=== PATIENT | female | born 1995 | race Caucasian/White ===

== ENCOUNTER 2017-10-15 01:54 | Emergency (ER) | payer SELFPAY | END 2017-10-15 02:17 | disposition left against medical advice (07) | LOC: M ED 01:54 | DX: R51 Headache (principal); Z53.21 Procedure and treatment not carried out due to patient leaving prior to being seen by health care provider ==

== ENCOUNTER → 2018-03-02 | Outpatient (REF) | payer BC | LOC: M LAB REF 11:54 | DX: J02.9 Acute pharyngitis, unspecified (principal) | CPT/HCPCS: 87081 ==

== ENCOUNTER 2019-04-26 19:06 | Emergency (ER) | payer OTHER ==
[~2019-04-26] VITALS: Ht 154.9 cm; Wt 83.2 kg
[~2019-04-26 19:06] MED LIST changes: -ALBU8.5H
[2019-04-26] MEDS ORDERED: ALBU8.5H (19:18)
[2019-04-26 19:51] LABS: BASO # 0.1 10^3/uL (0.0-0.2); BASO % 0.7 % (0.0-1.0); EOS # 0.2 10^3/uL (0.0-0.50); EOS % 1.5 % (0.0-3.0); HEMATOCRIT 43.4 % (36.0-47.0); HEMOGLOBIN 13.9 g/dl (12.0-15.5); LYMPH # 2.9 10^3/uL (1.5-6.5); LYMPH % 23.9 % (24.0-44.0); MEAN CORPUSCULAR HEMOGLOBIN 30.8 pg (27.0-33.0); MEAN CORPUSCULAR VOLUME 96.2 fl (80.0-96.0); MONO # 1.1 10^3/uL (0.0-0.8); MONO % 9.2 % (0.0-5.0); NEUTROPHILS # 7.9 10^3/uL (1.8-7.7); NEUTROPHILS % 64.1 % (36.0-66.0); PLATELET COUNT, AUTOMATED 273 10^3/uL (150-450); RED BLOOD COUNT 4.51 10^6/uL (4.00-5.40); WHITE BLOOD COUNT 12.2 10^3/uL (4.0-10.0)
[2019-04-26 20:37] LABS: BLOOD UREA NITROGEN 10 MG/DL (7-18); CALCIUM LEVEL 9.5 MG/DL (8.5-10.1); CARBON DIOXIDE LEVEL 29 MEQ/L (21-32); CHLORIDE LEVEL 107 MEQ/L (98-107); CREATININE FOR GFR 0.74 MG/DL (0.55-1.30); GLOMERULAR FILTRATION RATE > 60.0 (>60); GLUCOSE, FASTING 87 MG/DL (70-100); HCG, SERUM QUANTITATIVE 6677 MIU/ML; POTASSIUM SERUM 4.3 MEQ/L (3.5-5.1); SODIUM LEVEL 141 MEQ/L (136-145)
[2019-04-26] MEDS ORDERED: ACETAMINOPHEN 325 MG TAB PO ONE (21:15)
--- NOTE | 2019-04-26 21:43 | REPVR ---
EXAM: US , Transvaginal EXAM DATE/TIME: 04/26/2019 8:45 PM CLINICAL HISTORY: 24 years old, female; Lmp or gestational age (in weeks): 7; Antepartum complications; Bleeding; ; Additional info: Vaginal bleeding 7 wks preg TECHNIQUE: Imaging protocol: Real-time transvaginal obstetrical ultrasound of the maternal pelvis and a first trimester with image documentation. Transvaginal imaging was used for better evaluation of the fetus and adnexa. COMPARISON: No relevant prior studies available. FINDINGS: GESTATION: Gestation: Gestational sac within the uterus with yolk sac but no pole at this time. BIOMETRY: Estimated gestational age: Mean sac size is 9 mm suggesting an age of 5 weeks 5 days. MATERNAL: Uterus: The uterus measures 8.0 cm in its cephalocaudad dimension and 3.7 x 5.3 cm in its AP and lateral dimensions. Right adnexa: The right ovary measures 2.8 x 2.2 x 2.8 cm. Left adnexa: The left ovary measures 2.1 x 1.4 x 1.6. IMPRESSION: 1. Gestational sac within the uterus which by size suggests an age of 5 weeks 5 days. There is a yolk sac but no pole at this time. Followup in 1-2 weeks may be of benefit to evaluate for viability. 2. Otherwise negative pelvic sonogram. Electronically signed by: Carson Green On 04/26/2019 21:43:12 PM
[2019-04-26 22:19] VITALS: BP 114/73
== END 2019-04-26 22:35 | disposition home or self-care (01) ==
LOC: M ED 19:06
DX: O26.851 Spotting complicating pregnancy, first trimester (principal); W01.0XXA Fall on same level from slipping, tripping and stumbling without subsequent striking against object, initial encounter; Y92.9 Unspecified place or not applicable; Y93.9 Activity, unspecified; Y99.9 Unspecified external cause status; O99.511 Diseases of the respiratory system complicating pregnancy, first trimester; O99.89 Other specified diseases and conditions complicating pregnancy, childbirth and the puerperium; R10.2 Pelvic and perineal pain; J30.81 Allergic rhinitis due to animal (cat) (dog) hair and dander; Z3A.01 Less than 8 weeks gestation of pregnancy; Z88.8 Allergy status to other drugs, medicaments and biological substances

== ENCOUNTER → 2019-04-26 | Outpatient (CLI) | payer OTHER ==
[~2019-04-26] MED LIST: ALBU8.5H; IBUP-1022 PO
[2019-04-26 20:10] LABS: HCG, SERUM QUALITATIVE POSITIVE (NEGATIVE)
[2019-04-26 20:34] LABS: HCG, SERUM QUANTITATIVE 6534 MIU/ML
== END ==
LOC: M WUC 15:37
PROVIDERS: ATTEND Physician Assistant
DX: N91.2 Amenorrhea, unspecified (principal)

== ENCOUNTER → 2019-05-03 | Outpatient (REF) | payer OTHER ==
[~2019-05-03] MED LIST changes: +ALBU8.5H
== END ==
LOC: M SFHCPLAZ 17:17
PROVIDERS: ATTEND Dermatology
DX: D22.5 Melanocytic nevi of trunk (principal); L72.0 Epidermal cyst

== ENCOUNTER → 2019-07-10 | Outpatient (REF) | payer OTHER | LOC: M LAB REF 17:05 | PROVIDERS: ATTEND Family Medicine | DX: M54.5 Low back pain (principal) ==

== ENCOUNTER → 2019-10-04 | Outpatient (CLI) | payer OTHER ==
[2019-10-04 18:31] LABS: HEMATOCRIT 40.3 % (36.0-47.0); HEMOGLOBIN 12.3 g/dl (12.0-15.5); MEAN CORPUSCULAR HEMOGLOBIN 29.3 pg (27.0-33.0); MEAN CORPUSCULAR HGB CONC 30.5 g/dl (32.0-36.5); PLATELET COUNT, AUTOMATED 179 10^3/uL (150-450); WHITE BLOOD COUNT 13.9 10^3/uL (4.0-10.0)
== END ==
LOC: M PLALAB 14:28 → MERGE 14:28
PROVIDERS: ATTEND Advanced Practice Midwife
DX: Z34.93 Encounter for supervision of normal pregnancy, unspecified, third trimester (principal); Z3A.00 Weeks of gestation of pregnancy not specified

== ENCOUNTER → 2019-10-17 | Outpatient (CLI) | payer OTHER | LOC: M LAB 06:55 → MERGE 06:55 | PROVIDERS: ATTEND Advanced Practice Midwife | DX: R73.01 Impaired fasting glucose (principal) ==

== ENCOUNTER → 2019-11-29 | Outpatient (REF) | payer OTHER ==
[~2019-11-29] MED LIST changes: +ACET-683 PO; +MULTTAB20 PO; +TUMS500C PO; +ZYRTTAB8 PO
== END ==
LOC: M SFHCWAGY 10:01
PROVIDERS: ATTEND Specialist
DX: Z34.83 Encounter for supervision of other normal pregnancy, third trimester (principal)

== ENCOUNTER 2019-12-05 19:47 | Outpatient (CLI) | payer OTHER ==
[~2019-12-05] VITALS: Ht 154.9 cm; Wt 94.0 kg
[2019-12-05 20:08] VITALS: BP 132/77
== END 2019-12-05 22:05 | disposition home or self-care (01) ==
LOC: M LDO 19:47
PROVIDERS: ATTEND Obstetrics & Gynecology
DX: O36.8130 Decreased fetal movements, third trimester, not applicable or unspecified (principal); Z3A.37 37 weeks gestation of pregnancy; Z79.51 Long term (current) use of inhaled steroids
CPT/HCPCS: 59025; 80053; 82239; G0378; G0463

== ENCOUNTER → 2019-12-05 | Outpatient (REF) | payer OTHER ==
[~2019-12-05] MED LIST changes: -ACET-683 PO; -MULTTAB20 PO; -TUMS500C PO; -ZYRTTAB8 PO
[2019-12-05 10:39] LABS: ALBUMIN 2.8 GM/DL (3.2-5.2); ALT/SGPT 9 U/L (12-78); BILIRUBIN,TOTAL 0.3 MG/DL (0.2-1.0); BLOOD UREA NITROGEN 6 MG/DL (7-18); CALCIUM LEVEL 9.1 MG/DL (8.5-10.1); CARBON DIOXIDE LEVEL 25 MEQ/L (21-32); CHLORIDE LEVEL 106 MEQ/L (98-107); CREATININE FOR GFR 0.55 MG/DL (0.55-1.30); GLOMERULAR FILTRATION RATE > 60.0 (>60); GLUCOSE, FASTING 75 MG/DL (70-100); POTASSIUM SERUM 4.1 MEQ/L (3.5-5.1); SODIUM LEVEL 141 MEQ/L (136-145); TOTAL PROTEIN 6.8 GM/DL (6.4-8.2)
== END ==
LOC: M PLALAB 08:23
PROVIDERS: ATTEND Advanced Practice Midwife
DX: O26.619 Liver and biliary tract disorders in pregnancy, unspecified trimester (principal)

== ENCOUNTER 2019-12-24 06:15 | Inpatient (IN) | payer OTHER ==
[~2019-12-24] VITALS: Ht 154.9 cm; Wt 94.7 kg
[2019-12-24] VITALS (44 sets, daily range): BP systolic 90–149; BP diastolic 50–89
[2019-12-24] MEDS ORDERED: ACET-683 PO (06:55)
[2019-12-24] MEDS ORDERED: ZYRTTAB8 PO (06:55)
[2019-12-24] MEDS ORDERED: TUMS500C PO (06:55)
[2019-12-24] MEDS ORDERED: MULTTAB20 PO (06:55)
[2019-12-24 07:33] LABS: HEMATOCRIT 37.8 % (36.0-47.0); HEMOGLOBIN 12.2 g/dl (12.0-15.5); MEAN CORPUSCULAR HEMOGLOBIN 29.5 pg (27.0-33.0); MEAN CORPUSCULAR HGB CONC 32.3 g/dl (32.0-36.5); MEAN CORPUSCULAR VOLUME 91.5 fl (80.0-96.0); PLATELET COUNT, AUTOMATED 166 10^3/uL (150-450); RED BLOOD COUNT 4.13 10^6/uL (4.00-5.40); WHITE BLOOD COUNT 12.6 10^3/uL (4.0-10.0)
--- NOTE | 2019-12-24 09:30 | HPEPDOC ---
Obstetrical History & Physical General Date of Admission Dec 24, 2019 at 06:15 History of Present Illness 24-year-old 2, para 0, presents at 40 weeks 4 days estimated gestational age for induction of labor. She has had uncomplicated course. She initiated care first trimesters been appropriate throughout. She reports active movements. Denies any vaginal bleeding, leakage fluid or regular pattern of contractions. Chief Complaint: Induction of labor Information Provided By: Patient Age: 24 : 2 Livin Care Care: Good Care Dating Final EDC: Dec 20, 2019 Final EDC by: 1st trimester (US) EGA at Admission: 40 Past Medical History Past Obstetrical History : Past Obstetrical History: Primgravida Past Medical History Surgical History: Dilatation and Curettage, Tonsilectomy Social History Marital Status: Family situation: Spouse/partner home Psychosocial History: No pertinent psych hx * Smoker: non-smoker Alcohol: Denies Drugs: denies Allergies Coded Allergies: iodine (Verified Allergy, Severe, throat closes, 04/26/19) Dog Dander (Verified Allergy, Mild, 04/26/19) Medications Scheduled Cetirizine HCl/Pseudoephedrine (Zyrtec-D Tablet) 1 Each Tab.er.12h, 1 TAB PO DAILY No122/Iron/Folic Acid ( Multi Tablet) 1 Each Tablet, 1 TAB PO DAILY Scheduled PRN Acetaminophen (Acetaminophen) 500 Mg Tablet, 1,000 MG PO Q6H PRN for PAIN Calcium Carbonate (Tums) 200 Mg Tab.chew, 2 TAB PO QID PRN for HEARTBURN Miscellaneous Medications Albuterol Sulfate (Albuterol Sulfate Hfa) 8.5 Gm Hfa.aer.ad Physical Examination Physical Examination GENERAL: Alert and oriented times three. BREAST: . ABDOMEN: Gravid and non-tender to touch. FETUS: Is vertex (VTX) by sterile vaginal examination (SVE), fetus is vertex (VTX) by Ministerio. HEART RATE: Regular rate and rhythm. LUNGS: Clear to auscultation (CTA). Vital Signs/I&O Vital Signs Date Time Temp Pulse Resp B/P (MAP) Pulse Ox O2 Delivery O2 Flow Rate FiO2 12/24/19 06:37 97.4 109 16 114/72 (86) Laboratory Data 24H LABS Laboratory Tests 2 12/24/19 06:22: Serology Scanned Report Hepatitis B Testing 12/24/19 07:14: Nucleated Red Blood Cells % (auto) 0.0 CBC/BMP Laboratory Tests 12/24/19 07:14 Pertinent Laboratoy Data Blood Type: O+ RBC Antibody Screen: Negative HIV: Negative Hepatitis B: Negative Hepatitis C: Negative Rapid Plasma Reagin: Nonreactive Rubella: Immune Chlamydia/Gonorrhea: Negative Group B Streptococcus: Negative Vaginal Examination Dilation: 1cm Effacement: 30% Station: -3 Cervical Consistency: Firm Cervical Position: Posterior Presentation: Cephalic presentation Assessment Heart Rate (FHR): 140 Variability: Moderate Accelerations: Positive Decelerations: None Tocometer Contractions: Yes Frequency: irregular Assessment/Plan Assessment 24-year-old 2, para 0 at 40 weeks 4 days estimated gestational age by her last period, for social induction labor. Reassuring status Plan Admit and orient. Director Selection And Administration and consent. Diet: Regular. Group B Streptococcus (GBS) negative. Labs and intravenous (IV) per unit protocol. Counseled on Pitocin and induction of labor (IOL). Anticipate normal spontaneous delivery (). C-S as appropriate. Labor and Delivery Counseling Patient has been thoroughly counseled regards, induction labor. Discussed me dication as well as procedures performed labor and delivery. She is been verbally consented for emergency surgery, blood products anesthesia desires to proceed with admission. We'll initiate her induction with 50 g of misoprostol OG MACIAS MD. Dec 24, 2019 09:30
[2019-12-24] MEDS: miSOPROStol 50 MCG 1/2 TAB (S0191) PO SCH ×2 (09:31→13:36)
[2019-12-24] MEDS ORDERED: FENTANYL 2MCG/ML ROPIVACAINE 0.2% IN 0.9% NACL 100ML IVBAG As Ordered ONE (19:18)
[2019-12-24] MEDS ORDERED: ePHEDrine SULFATE 25 MG/5 ML(5MG/ML) SYRINGE IV PRN (19:40)
[2019-12-24] MEDS ORDERED: EPIDURAL COMMENT XX SCH (19:40)
[2019-12-24] MEDS ORDERED: LACTATED RINGER'S 1000 ML IV PRN (19:40)
[2019-12-24] MEDS ORDERED: NALOXONE INJ 0.4MG/1ML VIAL (J2310 PER 1MG) IV PRN (19:40)
[2019-12-24] MEDS ORDERED: EPIDURAL/PCA KEYS XX PRN (19:40)
[2019-12-24] MEDS ORDERED: REFRIGERATOR IV KEYS XX PRN (19:40)
[2019-12-24] MEDS ORDERED: diphenhydrAMINE 50MG/ML VIAL (J1200) IV PRN (19:40)
[2019-12-24] MEDS ORDERED: ONDANSETRON 4MG/2ML VIAL IV PRN (19:40)
[2019-12-24] MEDS: FENTANYL/ROPIVACAINE/NACL BAG 100 ML EPIDURAL SCH (20:09)
[2019-12-24] MEDS ORDERED: LR 1,000 ML IV SCH (23:08)
[2019-12-24] MEDS ORDERED: OXYTOCIN DRIP 30 UNITS in IV 1 EA IV SCH (23:15)
--- NOTE | 2019-12-24 23:56 | IPNPDOC ---
Obstetrical Progress Note Date of Service Dec 24, 2019 Subjective Patient is comfortable following epidural placement. SROM earlier this afternoon, clear fluid. Has received 2 doses of misoprostol Objective Vital Signs Date Time Temp Pulse Resp B/P (MAP) Pulse Ox O2 Delivery O2 Flow Rate FiO2 12/24/19 06:37 97.4 109 16 114/72 (86) Assessment Heart Rate (FHR): 130 Variability: Moderate Accelerations: Positive Heart Rate Tracing: Category I Tocometer Contractions: Yes Frequency: irregular Sterile Vaginal Examination Dilation: 1cm Effacement (%): 50% Station: -3 Assessment and Plan Age: 24 Status: Reassuring Additional Comments Plan start Pitocin. Anticipate spontaneous vaginal delivery OG MACIAS MD. Dec 24, 2019 23:56
[2019-12-25] VITALS (33 sets, daily range): BP systolic 82–141; BP diastolic 51–76
[2019-12-25] MEDS: FENTANYL/ROPIVACAINE/NACL BAG 100 ML EPIDURAL SCH (03:41)
[2019-12-25] MEDS ORDERED: OXYTOCIN DRIP 30 UNITS in IV 1 EA IV SCH (10:43)
[2019-12-25] MEDS ORDERED: ANUSOL HC CREAM 30GM TOP PRN (10:45)
[2019-12-25] MEDS ORDERED: MEASLES,MUMPS,RUBELLA VACCINE INJ (MMR-II) (90707) SC SCH (10:45)
[2019-12-25] MEDS ORDERED: RHOGAM 300 MCG (1500 IU) INJ (J2790) IM SCH (10:45)
[2019-12-25] MEDS ORDERED: DIBUCAINE 1% OINTMENT 30GM TOP PRN (10:45)
[2019-12-25] MEDS ORDERED: ACETAMINOPHEN TAB 650MG DOSE (2X325MG) PO PRN (10:45)
[2019-12-25] MEDS ORDERED: ACETAMINOPHEN 500 MG TAB PO PRN (10:45)
[2019-12-25] MEDS ORDERED: METHYLERGONOVINE MALEATE 0.2 MG TAB PO PRN (10:45)
[2019-12-25] MEDS ORDERED: DOCUSATE SODIUM 100 MG CAP PO PRN (10:45)
[2019-12-25] MEDS ORDERED: IBUPROFEN 600 MG TAB PO PRN (10:45)
--- NOTE | 2019-12-25 10:48 | DNPDOC ---
[facility] Delivery Note Delivery Note DATE OF DELIVERY: 12/25/19 at 1007 PREDELIVERY DIAGNOSIS: 40 5/7 weeks' gestation and labor. POST DELIVERY DIAGNOSIS: Delivered. PROCEDURE: Spontaneous vaginal delivery. PROVIDER: Dr. Rico supervised and assisted by Edgard Garcia CNM, CANDELARIO ANESTHESIA: epidural. ESTIMATED BLOOD LOSS: 300 mL. FINDINGS: 7 pounds 11 ounces; 3480 grams; male infant, Score 8/9, PUPPS rash. DELIVERY SUMMARY: Patient is a 24-year-old female who is now a who presented for an elective induction of labor. She received cytotec and IV Pitocin for induction. She requested an epidural for pain management. The patient progressed to fully dilated at 0927 and pushed to a living male in the OA position with restitution to LOT. The anterior shoulder delivered with gentle down nicolas traction and the corpus followed at 1007. The baby was placed [id number] active and crying with stimulation. The cord was clamped x2 after 3 minutes and cut by the FOB. A 3-vessel cord was noted. The placenta delivered spontaneously and intact at 1012. Uterine hemostasis was achieved via rapid infusion of IV Pitocin and fundal massage. The mom plans to breast feed her . They are naming him: Damien. All counts of instruments and sponges are correct. EDGARD GARCIA CNM Dec 25, 2019 10:48
[2019-12-25] MEDS: IBUPROFEN 800 MG TAB PO PRN ×2 (11:19→18:15)
[2019-12-26] MEDS: IBUPROFEN 800 MG TAB PO PRN ×2 (03:41→13:14)
[2019-12-26 06:11] VITALS: BP 102/67
[2019-12-26] MEDS ORDERED: IBUP80TA PO (08:47)
[2019-12-26] MEDS ORDERED: ACET-683 PO (08:47)
[2019-12-26] MEDS ORDERED: PRENATAL VITAMINS CHEWABLE TABLET PO SCH (09:00)
[2019-12-26] MEDS ORDERED: BOOSTRIX/ADACEL VACCINE (DIPHTH/PERTUSS/ACELL/TETANUS) 0.5ML SYR IM ONE (09:00)
== END 2019-12-26 19:50 | disposition home or self-care (01) | DRG 807 ==
LOC: M LDI 06:15 → M OBS 12-25 13:26
PROVIDERS: ADMIT Obstetrics & Gynecology; ATTEND Advanced Practice Midwife
PROC: 3E0P7GC Introduction of Other Therapeutic Substance into Female Reproductive, Via Natural or Artificial Opening (ICD-10-PCS; 2019-12-24)
PROC: 10E0XZZ Delivery of Products of Conception, External Approach (ICD-10-PCS; principal; 2019-12-25)
PROC: 0KQM0ZZ Repair Perineum Muscle, Open Approach (ICD-10-PCS; 2019-12-25)
DX: O48.0 Post-term pregnancy (principal); Z37.0 Single live birth; Z3A.40 40 weeks gestation of pregnancy; O70.1 Second degree perineal laceration during delivery

== ENCOUNTER 2020-04-06 19:46 | Emergency (ER) | payer OTHER ==
[~2020-04-06 19:46] MED LIST changes: +ACET-683 PO; +IBUP80TA PO; +MULTTAB20 PO; +TUMS500C PO; +ZYRTTAB8 PO
[2020-05-12 21:36] LABS: BASO # 0.1 10^3/uL (0.0-0.2); BASO % 0.7 % (0.0-1.0); EOS # 0.2 10^3/uL (0.0-0.5); EOS % 1.5 % (0.0-3.0); HEMATOCRIT 46.3 % (36.0-47.0); HEMOGLOBIN 14.4 g/dl (12.0-15.5); LYMPH # 2.4 10^3/uL (1.5-5.0); LYMPH % 22.6 % (24.0-44.0); MEAN CORPUSCULAR HEMOGLOBIN 28.7 pg (27.0-33.0); MEAN CORPUSCULAR HGB CONC 31.1 g/dl (32.0-36.5); MEAN CORPUSCULAR VOLUME 92.4 fl (80.0-96.0); MONO # 0.7 10^3/uL (0.0-0.8); MONO % 6.9 % (0.0-5.0); NEUTROPHILS # 7.3 10^3/uL (1.5-8.5); NEUTROPHILS % 67.9 % (36.0-66.0); PLATELET COUNT, AUTOMATED 289 10^3/uL (150-450); RED BLOOD COUNT 5.01 10^6/uL (4.00-5.40); WHITE BLOOD COUNT 10.7 10^3/uL (4.0-10.0)
--- NOTE | 2020-06-04 12:19 | ECGEPIP ---
SINUS RHYTHM NORMAL ECG INTERPRETATION BASED ON A DEFAULT AGE OF 40 YEARS NO OLD AVAILABLE SEE SCANNED DOWNTIME REPORT MTDD
[2020-07-02 08:51] LABS: BLOOD UREA NITROGEN 12 MG/DL (7-18); CALCIUM LEVEL 9.6 MG/DL (8.5-10.1); CARBON DIOXIDE LEVEL 28 mmol/L (20-29); CHLORIDE LEVEL 106 MEQ/L (98-107); CREATININE FOR GFR 0.78 MG/DL (0.55-1.30); GLOMERULAR FILTRATION RATE > 60.0 (>60); GLUCOSE, FASTING 84 MG/DL (70-100); POTASSIUM SERUM 3.9 MEQ/L (3.5-5.1); SODIUM LEVEL 139 MEQ/L (136-145)
[2020-07-02 08:52] LABS: ALBUMIN 4.8 GM/DL (3.2-5.2); ALT/SGPT 24 IU/L (0-32); BILIRUBIN,DIRECT < 0.1 MG/DL (0.0-0.2); BILIRUBIN,TOTAL 0.2 MG/DL (0.2-1.0); CK-MB VALUE MASS < 1.0 NG/ML (<3.6); CPK CREATINE PHOSPHOKINASE 68 U/L (26-192); LIPASE 99 U/L (73-393); MB/CK RELATIVE INDEX 1.47 (< OR =4); TOTAL PROTEIN 8.6 GM/DL (6.4-8.2); TROPONIN I < 0.02 NG/ML (< 0.10)
== END 2020-04-07 13:50 | disposition home or self-care (01) ==
LOC: M ED 19:46
DX: J45.901 Unspecified asthma with (acute) exacerbation (principal); J06.9 Acute upper respiratory infection, unspecified; E86.0 Dehydration; R42 Dizziness and giddiness; G43.909 Migraine, unspecified, not intractable, without status migrainosus; J30.81 Allergic rhinitis due to animal (cat) (dog) hair and dander